=== PATIENT | male | born 1940 | race Caucasian/White ===

== ENCOUNTER 2019-08-18 17:35 | Inpatient (IN) ==
[2019-08-18 18:26] LABS: Basophils # (auto) 0.02 K/uL (0-0.2); Basophils % (auto) 0.2 %; Eosinophils # (auto) 0.61 K/uL (0-0.5); Hematocrit (blood only) 32.5 % (42-52); Hemoglobin 10.3 g/dL (14.0-18.0); Immature Granulocytes # (auto) 0.02 K/uL (0.00-0.02); Immature Granulocytes % (auto) 0.2 %; Lymphocytes # (auto) 2.07 K/uL (1.2-3.4); Lymphocytes % (auto) 23.7 %; Mean Corpuscular Hemoglobin 30.4 pg (25-34); Mean Corpuscular Hgb Conc 31.7 g/dL (32-36); Mean Corpuscular Volume 95.9 fL (80-100); Mean Platelet Volume 9.4 fL (7.4-10.4); Monocytes # (auto) 0.72 K/uL (0.11-0.59); Monocytes % (auto) 8.2 %; Neutrophils # (auto) 5.31 K/uL (1.4-6.5); Neutrophils % (auto) 60.7 %; Platelet Count 311 K/uL (130-400); RDW Coefficient of Variation 14.6 % (11.5-14.5); Red Blood Count 3.39 M/uL (4.7-6.1); White Blood Count 8.75 K/uL (4.8-10.8)
[2019-08-18 18:44] LABS: Blood Urea Nitrogen 51 mg/dl (7-18); Carbon Dioxide 24 mmol/L (21-32); Chloride 106 mmol/L (98-107); Potassium 4.7 mmol/L (3.5-5.1); Sodium 136 mmol/L (136-145)
[2019-08-18 18:45] LABS: BUN Creatinine Ratio 18.3 (10-20); Calcium 8.6 mg/dl (8.5-10.1); Est GFR (Non-African American) 20.7; Glucose 146 mg/dl (70-99)
[2019-08-18 18:49] LABS: Appearance Urine Turbid (Clear); Color Urine Red
[2019-08-18 18:50] LABS: Specific Gravity Urine 1.007 (1.000-1.030); Sulfosalicylic Acid Urine Positive (Negative)
[2019-08-18 18:55] LABS: RBC Urine >30 /hpf (0-4)
[2019-08-18 18:56] LABS: Epithelial Cell Urine 0-5 /lpf (0-5); WBC Urine >30 /hpf (0-5)
[2019-08-18 18:57] LABS: Bacteria Urine Negative (Negative)
[2019-08-18] MEDS ORDERED: SODIUM CHLORIDE 0.9% 1000ML 1,000 ML IV STA (19:35)
--- NOTE | 2019-08-18 20:26 | CT Scan Report ---
ABDOMEN AND PELVIS CT WITHOUT CONTRAST CT DOSE: 1385.60 mGy.cm HISTORY: Acute hematuria RACHELL, urinary retention TECHNIQUE: Multiaxial CT images of the abdomen and pelvis were performed without contrast. A dose lo wering technique was utilized adhering to the principles of ALARA. COMPARISON STUDY: None. FINDINGS: Lung bases are generally clear. No pneumatosis or pneumoperitoneum. The imaged inferior cardiac chamb ers are mildly enlarged. Mitral and aortic annular calcifications are present. Unremarkable liver. Sp troy, gallbladder and adrenal glands are unremarkable. No biliary ductal dilation. Moderate pancreati c atrophy. There is mild nonspecific bilateral perinephric stranding. 11 mm hypodensity of the latera l interpolar right kidney suggest probable cyst. No renal or ureteral calculi or obstructive uropathy . Ureters are normal in caliber. Moderate bladder wall thickening with partial distention. A Persaud ca theter is noted in the bladder lumen. Mild perivesicular stranding. Nondependent air within the bladd er lumen is noted with moderate amount of intraluminal blood products. Small fat filled bilateral ing uinal hernias. Extensive calcified plaque of the abdominal aorta. Postsurgical changes of the right inguinal tissues . No adenopathy. 1.3 cm fatty attenuating focus involves a loop of jejunum within the upper abdomen s uggestive of ingested material versus lipoma, image 108 series 3. No bowel obstruction or bowel wall thickening. Colonic diverticulosis without acute diverticulitis. Benign-appearing ovoid calcification adjacent to the distal sigmoid colon. This is adjacent to an area of remote epiploic appendage it is . Moderate fecal retention. The appendix appears noninflamed. Soft tissues are unremarkable. Degenera tive changes of the spine, pelvis and hips. IMPRESSION: 1. No renal or ureteral calculi or obstructive uropathy. 2. Partially decompressed urinary bladder with Persaud catheter. Moderate amount of blood products are noted within urinary bladder lumen. 3. Cardiomegaly. 4. Moderate fecal retention. 5. Colonic diverticulosis without acute diverticulitis. 6. Additional findings as above. Electronically signed by: Corona Souza M.D. 08/18/2019 8:25 PM
--- NOTE | 2019-08-18 21:46 | Emergency Department Note ---
Entered by Иван Zhu acting as a scribe for ED Provider Note CHIEF COMPLAINT: Catheter Malfunction HISTORY OF PRESENT ILLNESS: The patient is a 79 year old male who presents to the Emergency Room with complaints of catheter malfunction that started this morning. The patient states he had a prostate surgery done by Dr. Egan 3 weeks ago. He states he started having pain a week ago and had a catheter placed. He states he drained his catheter bag this morning and states it was pure blood. He notes lower abdominal pain and discomfort. He also notes feeling somewhat lightheaded and dizzy at times. He is concerned about the amount of bleeding he is experienced as he has a history of anemia. He took no medication for symptoms. Pt denies LOC, headache, fevers, chills, diaphoresis, visual changes, neck pain, chest pain, breathing difficulties, nausea, vomiting, back pain, melena, hematochezia, numbness, weakness, lymphadenopathy, rash, or other complaints. REVIEW OF SYSTEMS: See HPI for pertinent positives and negatives. A total of ten systems were reviewed and were otherwise negative. PMHx/PSHx: Anxiety, arthritis, BPH, depression, diabetes, hyperlipidemia, hypertension, peripheral vascular disease, history of vascular surgery, history of prostate surgery, history of herniorrhaphy, and history of arthroscopy. SOCIAL HISTORY: Patient lives at home. PHYSICAL EXAM: GENERAL: Awake, alert, uncomfortable-appearing, in no distress HENT: Normocephalic, atraumatic. Oropharynx unremarkable. EYES: PERRL. Normal conjunctiva. Sclera non-icteric. NECK: Inspection normal. Non-tender. Supple. No nuchal rigidity. FROM. No masses. RESPIRATORY: Clear to auscultation. No wheezes. No rales. Normal respiratory effort. CARDIAC: Tachycardic rate. Normal rhythm. No murmurs. No rubs. Extremities warm and well perfused. Pulses equal. No JVD. GI: Soft, non-distended. No tenderness to palpation. No rebound or guarding. No masses. : Suprapubic tenderness. Persaud catheter in place with bloody urine in the bag. RECTAL: Deferred. MUSCULOSKELETAL: Atraumatic. Chest examination reveals no tenderness. The back is symmetrical on inspection without obvious abnormality. There is no CVA tenderness to palpation. No joint edema. LOWER EXTREMITIES: Calves are equal size bilaterally and non-tender. No edema. No discoloration. NEURO: Normal sensorium. No sensory or motor deficits noted. SKIN: No rash or jaundice noted. EMERGENCY DEPARTMENT COURSE: 1746: Past medical records reviewed. The patient was evaluated in room C8, and a complete history and physical examination were performed. 1927: I reevaluated the patient. I discussed the test results with the patient and the patient is agreeable to getting admitted to the hospital. 1941: I discussed the patient's case with Dr. Walters - [facility] Hospitalist. He will evaluate the patient for further management MEDICAL DECISION MAKING: C8 Triage Nursing notes reviewed. The patient's presentation and history were concerning for a malfunctioning Persaud catheter. Etiologies such as catheter malfunction, obstruction, dehydration, infection, urinary retention, ARF, as well as others were entertained. The patient was evaluated. Persaud catheter was in place. The Persaud catheter was irrigated by nursing and the patient had spontaneous urine flow. He had resolution of his abdominal discomfort and felt much better with regards to that. As he has had significant bleeding the patient was questioned and did note feeling somewhat lightheaded. Blood work was obtained. The patient was slightly more anemic than prior but not within the range of transfusion considerations. He had no leukocytosis. There is no signs of infection on urine dip. The patient was found to have acute kidney injury with a doubling of his creatinine on his chemistry panel. This was concerning given his history. I discussed this with him and his family. Admission for further work-up was deemed appropriate. The patient was hydrated. CT imaging was ordered. I did place a consultation with Dr. Walters of internal medicine. The patient was evaluated by the team in the emergency department admitted for further treatment. IMPRESSION: Acute urinary retention Acute kidney injury Anemia. PLAN: Admitted The scribe's documentation has been prepared under my direction and personally reviewed by me in its entirety. I confirm that the note above accurately reflects all work, treatment, procedures, and medical decision making performed by me. 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 Beliefs That Will Affect Care: None Current Living Situation: Spouse Feels Safe at Home: Yes Smoking Status: Never smoker Second Hand Exposure: No ; Hx Alcohol Use: Yes Alcohol type: beer Hx Substance Use: No Results & Data Vital Signs Vital Signs - 24 hr 08/18/19 17:37 08/18/19 19:07 08/18/19 21:00 Temperature 36.4 C L Temperature Source Oral Pulse Rate 103 H Pulse Rate [Finger] 83 82 Respiratory Rate 20 18 20 Respiratory Effort / Characteristics Non-Labored Respiratory Depth Normal Normal Blood Pressure 161/73 H Blood Pressure [Right Arm] 149/72 H 129/73 Blood Pressure Mean 102 Blood Pressure Mean [Right Arm] 97 91 Pulse Oximetry 96 95 95 Oxygen Delivery Method Room Air Room Air Room Air Sepsis Recent Fever Within 48 Hours No Sepsis New/Unexplained Change in Mental Status No Sepsis Action Taken by Nursing No Action Required Home Medications Current Medication List: was personally reviewed by me Laboratory Data Attestation: I reviewed the patient's lab results. Result diagrams: 08/18/19 18:12 08/18/19 18:12 Lab Results 08/18/19 08/18/19 08/18/19 Range/Units 18:12 18:12 18:27 WBC 8.75 (4.8-10.8) K/uL RBC 3.39 L (4.7-6.1) M/uL Hgb 10.3 L (14.0-18.0) g/dL Hct 32.5 L (42-52) % MCV 95.9 (80-100) fL MCH 30.4 (25-34) pg MCHC 31.7 L (32-36) g/dL RDW Std Deviation 51.0 H (36.4-46.3) fL RDW Coeff of Kaylin 14.6 H (11.5-14.5) % Plt Count 311 (130-400) K/uL MPV 9.4 (7.4-10.4) fL Immature Gran % (Auto) 0.2 % Neut % (Auto) 60.7 % Lymph % (Auto) 23.7 % [place] % (Auto) 8.2 % Eos % (Auto) 7.0 % Baso % (Auto) 0.2 % Immature Gran # (Auto) 0.02 (0.00-0.02) K/uL Neut # (Auto) 5.31 (1.4-6.5) K/uL Lymph # (Auto) 2.07 (1.2-3.4) K/uL [place] # (Auto) 0.72 H (0.11-0.59) K/uL Eos # (Auto) 0.61 H (0-0.5) K/uL Baso # (Auto) 0.02 (0-0.2) K/uL Sodium 136 (136-145) mmol/L Potassium 4.7 (3.5-5.1) mmol/L Chloride 106 (98-107) mmol/L Carbon Dioxide 24 (21-32) mmol/L Anion Gap 6.0 (3-11) BUN 51 H (7-18) mg/dl Creatinine 2.80 H (0.6-1.4) mg/dl Est Cr Clr Drug Dosing Not Reportable Est GFR ( Amer) 24.0 Est GFR (Non-Af Amer) 20.7 BUN/Creatinine Ratio 18.3 (10-20) Glucose 146 H (70-99) mg/dl Calcium 8.6 (8.5-10.1) mg/dl Urine Color Red Urine Appearance Turbid A (Clear) Urine pH (4.5-7.5) Ur Specific [place] 1.007 (1.000-1.030) Urine Protein (Negative) Urine Glucose (UA) (Negative) Urine Ketones (Negative) Urine Blood (Negative) Urine Nitrite (Negative) Urine Bilirubin (Negative) Urine Urobilinogen (Negative) Ur Leukocyte Esterase (Negative) Urine RBC >30 H (0-4) /hpf Urine WBC >30 H (0-5) /hpf Ur Epithelial Cells 0-5 (0-5) /lpf Urine Bacteria Negative (Negative) Administered Medications Sodium Chloride (Nss 1000ml) 1,000 mls @ 125 mls/hr IV .Q8H STA Stop: 08/19/19 03:34 Last Admin: 08/18/19 20:17 Dose: 125 mls/hr Documented by: [id number] Imaging Data Radiologist's Impression: Radiology results as stated below per my review and the radiologist's interpretation: ABDOMEN AND PELVIS CT WITHOUT CONTRAST CT DOSE: 1385.60 mGy.cm HISTORY: Acute hematuria RACHELL, urinary retention TECHNIQUE: Multiaxial CT images of the abdomen and pelvis were performed without contrast. A dose lowering technique was utilized adhering to the principles of ALARA. COMPARISON STUDY: None. FINDINGS: Lung bases are generally clear. No pneumatosis or pneumoperitoneum. The imaged inferior cardiac chambers are mildly enlarged. Mitral and aortic annular calcifications are present. Unremarkable liver. Spleen, gallbladder and adrenal glands are unremarkable. No biliary ductal dilation. Moderate pancreatic atrophy. There is mild nonspecific bilateral perinephric stranding. 11 mm hypodensity of the lateral interpolar right kidney suggest probable cyst. No renal or ureteral calculi or obstructive uropathy. Ureters are normal in caliber. Moderate bladder wall thickening with partial distention. A Persaud catheter is noted in the bladder lumen. Mild perivesicular stranding. Nondependent air within the bladder lumen is noted with moderate amount of intraluminal blood products. Small fat filled bilateral inguinal hernias. Extensive calcified plaque of the abdominal aorta. Postsurgical changes of the right inguinal tissues. No adenopathy. 1.3 cm fatty attenuating focus involves a loop of jejunum within the upper abdomen suggestive of ingested material versus lipoma, image 108 series 3. No bowel obstruction or bowel wall thickening. Colonic diverticulosis without acute diverticulitis. Benign-appearing ovoid calcification adjacent to the distal sigmoid colon. This is adjacent to an area of remote epiploic appendage it is. Moderate fecal retention. The appendix appears noninflamed. Soft tissues are unremarkable. Degenerative changes of the spine, pelvis and hips. IMPRESSION: 1. No renal or ureteral calculi or obstructive uropathy. 2. Partially decompressed urinary bladder with Persaud catheter. Moderate amount of blood products are noted within urinary bladder lumen. 3. Cardiomegaly. 4. Moderate fecal retention. 5. Colonic diverticulosis without acute diverticulitis. 6. Additional findings as above. Electronically signed by: Corona Souza M.D. 08/18/2019 8:25 PM Blood Pressure Blood Pressure Findings: Elevated blood pressure Blood Pressure Disposition: further management by hospitalist Discharge Plan Visit Data Chief Complaint: Catheter Replacement Stated Complaint: CATHETER REPLACEMENT ED Provider: Bear Solis Discharge Problem: Acute urinary retention, Acute kidney injury Patient Disposition: Being Evaluated by Hospitalist Forms Stand Alone Forms: My [facility] Prescriptions Prescriptions: No Action finasteride 5 mg tablet 5 mg PO DAILY Qty: 30 RF: 2 oxybutynin chloride 5 mg tablet 5 mg PO BID PRN (Reason: bladder spasms) Qty: 60 RF: 0 simvastatin 80 mg tablet 40 mg PO HS RF: 0 docusate sodium 100 mg capsule 100 mg PO BID RF: 0 gabapentin 300 mg capsule 300 mg PO BID RF: 0 tamsulosin 0.4 mg capsule 0.4 mg PO HS RF: 0 metformin 1,000 mg tablet 1,000 mg PO BIDM RF: 0 lisinopril 10 mg tablet 10 mg PO QAM RF: 0 pioglitazone 30 mg tablet 30 mg PO QDD RF: 0 trospium 20 mg tablet 20 mg PO BID RF: 0 phenazopyridine [Pyridium] 200 mg tablet 200 mg PO TID PRN (Reason: bladder spasms) Qty: 20 RF: 0 clopidogrel 75 mg Tablet 75 mg PO QPM Qty: 0 RF: 0 Referrals Referrals: Jose Miguel Back MD [Primary Care Provider] - The scribe's documentation has been prepared under my direction and personally reviewed by me in its entirety. I confirm that the note above accurately reflects all work, treatment, procedures, and medical decision making performed by me.
[2019-08-18] MEDS ORDERED: GLUCAGON FOR INJ 1 MG VIAL SQ PRN (21:50)
[2019-08-18] MEDS ORDERED: CARBOHYDRATES FOR HYPOGLYCEMIA PO PRN (21:50)
[2019-08-18] MEDS ORDERED: ACETAMINOPHEN 325 MG TAB PO PRN (21:50)
[2019-08-18] MEDS ORDERED: GLUCOSE 10 TABS/TUBE PO PRN (21:50)
[2019-08-18] MEDS ORDERED: OXYBUTYNIN CHLORIDE 5 MG TAB PO PRN (21:50)
[2019-08-18] MEDS ORDERED: GLUCOSE 40% GEL 15 GM TUBE PO PRN (21:50)
[2019-08-18] MEDS ORDERED: ONDANSETRON INJ 2 MG/ML 2 ML VIAL IV PRN (21:50)
[2019-08-18] MEDS ORDERED: DEXTROSE 50% 50 ML SYRINGE IV PRN (21:50)
[2019-08-18] MEDS: FAMOTIDINE 20 MG TAB PO SCH (22:41)
[2019-08-18] MEDS: DOCUSATE SODIUM 100 MG CAP PO SCH (22:41)
[2019-08-18] MEDS: TAMSULOSIN HCL 0.4 MG CAP PO SCH (22:41)
[2019-08-18] MEDS: GABAPENTIN 300 MG CAP PO SCH (22:41)
[2019-08-18] MEDS: SIMVASTATIN 40 MG TAB PO SCH (22:42)
--- NOTE | 2019-08-18 23:17 | History & Physical Report ---
Date of Service August 18, 2019 Assessment & Plan (1) Acute urinary retention: Admit GMF Clots evacuated from urinary cath [facility] Urology consult IV Rocephin in case infection is playing role in bleeding. Pain and nausea control. (2) Acute kidney injury: Baseline creat 1.12 -> 2.80 now IVF re-check bmp in the am suspect due to outlet obstruction. (3) Diabetes mellitus, type 2: Hold metformin continue pioglitazone Add sliding scale insulin ADA diet (4) BPH (benign prostatic hyperplasia): Had Greenlight vaporization of prostate 07/31/19 (5) Hypertension: Not elevated at this time I held lisinopril due to kidney function History of Present Illness 79 y/o male who presented to the ED with complaints of urinary catheter malfunction that started this morning. The patient states he had a prostate surgery done by Dr. Egan 3 weeks ago, then developed pain 1 week prior and had a catheter placed. He drained his catheter bag this morning and states it was "pure blood". He has had lower abdominal pain. No F/C, cough, SOB, chest pain, N/V/D, or weakness. Primary Care Provider: Jose Miguel Back MD Allergies Allergy/AdvReac Type Severity Reaction Status Date / Time Penicillins Allergy Unknown Unknown Verified 08/18/19 18:17 sildenafil [From Viagra] AdvReac Unknown hyperactivi Verified 08/18/19 18:17 ty Home Medications Home Medications Medication Instructions Recorded Confirmed Type simvastatin 80 mg tablet 40 mg PO HS 05/18/19 08/18/19 History docusate sodium 100 mg PO BID 07/12/19 08/18/19 History gabapentin 300 mg PO BID 07/12/19 08/18/19 History lisinopril 10 mg PO QAM 07/12/19 08/18/19 History metformin 1,000 mg PO BIDM 07/12/19 08/18/19 History pioglitazone 30 mg PO QDD 07/12/19 08/18/19 History tamsulosin 0.4 mg PO HS 07/12/19 08/18/19 History trospium 20 mg PO BID 07/12/19 08/18/19 History clopidogrel 75 mg PO QPM #0 tab 07/31/19 08/18/19 Rx phenazopyridine [Pyridium] 200 mg PO TID PRN #20 tab 07/31/19 08/18/19 Rx finasteride 5 mg tablet 5 mg PO DAILY #30 tab 08/17/19 08/18/19 Rx oxybutynin chloride 5 mg tablet 5 mg PO BID PRN #60 tab 08/17/19 08/18/19 Rx Past Med/Surg History Medical History Anxiety Arthritis BPH (benign prostatic hyperplasia) Depression Diabetes mellitus, type 2 NIDDM Hyperlipidemia Hypertension Obesity Peripheral vascular disease s/p RLE stent- on plavix Sleep apnea "mild"- no device Surgical History History of arthroscopy R/L knee History of herniorrhaphy right/left inguinal Hx of vascular surgery RLE stent placement Social History Preferred Language: Welsh Communication Ability: Effective Inhalation Therapy Aide Required: No Beliefs That Will Affect Care: None Current Living Situation: Spouse Other Information That Helps Us Care for You: No Feels Safe at Home: Yes Safety Concerns: Feels Safe At This Time Smoking Status: Former smoker Do You Dip or Chew Tobacco: No ; Second Hand Exposure: No ; Hx Alcohol Use: Yes Alcohol type: beer Hx Substance Use: No Review of Systems Review of Systems: Constitutional- no fever; no weight loss Eyes- no acute visual changes ENT- no sinus drainage; no pharyngitis Pulmonary- no cough, no wheezing, no shortness of breath Cardiac- no chest pain, no palpitations, no orthopnea, no dependent edema GI- As in HPI - As in HPI Musculoskeletal- no arthralgias, no myalgias Derm- no rashes, no new skin lesions. Hematologic- no unusual bruising. Lymphatics- no adenopathy Endocrine- no polyuria or polydipsia; no heat or cold intolerance Neuro- no headaches, no focal neurologic symptoms Psych- no anxiety, no depression Physical Exam Physical Exam: General- adult male, NAD Head- atraumatic Eyes- PERRL, EOMI, anicteric ENT- oropharynx clear Neck- supple, no JVD, no adenopathy, no thyromegaly. Lungs- CTA b/l no R/R/W. Heart- regular rhythm; no murmur, no gallop, no rub appreciated Abdomen- normal bowel sounds, soft, nontender. 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 Skin- warm & dry Results & Data Vital Signs (Past 12 Hours) Vital Signs Temp Pulse Pulse Resp BP BP Pulse Ox 08/18/19 22:16 36.5 C 88 22 126/68 94 08/18/19 21:00 82 20 129/73 95 08/18/19 19:07 83 18 149/72 H 95 08/18/19 17:37 36.4 C L 103 H 20 161/73 H 96 Laboratory Results Laboratory Results WBC 8.75 K/uL (4.8-10.8) 08/18/19 18:12 RBC 3.39 M/uL (4.7-6.1) L 08/18/19 18:12 Hgb 10.3 g/dL (14.0-18.0) L 08/18/19 18:12 Hct 32.5 % (42-52) L 08/18/19 18:12 MCV 95.9 fL (80-100) 08/18/19 18:12 MCH 30.4 pg (25-34) 08/18/19 18:12 MCHC 31.7 g/dL (32-36) L 08/18/19 18:12 RDW Std Deviation 51.0 fL (36.4-46.3) H 08/18/19 18:12 RDW Coeff of Kaylin 14.6 % (11.5-14.5) H 08/18/19 18:12 Plt Count 311 K/uL (130-400) 08/18/19 18:12 MPV 9.4 fL (7.4-10.4) 08/18/19 18:12 Immature Gran % (Auto) 0.2 % 08/18/19 18:12 Neut % (Auto) 60.7 % 08/18/19 18:12 Lymph % (Auto) 23.7 % 08/18/19 18:12 [place] % (Auto) 8.2 % 08/18/19 18:12 Eos % (Auto) 7.0 % 08/18/19 18:12 Baso % (Auto) 0.2 % 08/18/19 18:12 Immature Gran # (Auto) 0.02 K/uL (0.00-0.02) 08/18/19 18:12 Neut # (Auto) 5.31 K/uL (1.4-6.5) 08/18/19 18:12 Lymph # (Auto) 2.07 K/uL (1.2-3.4) 08/18/19 18:12 [place] # (Auto) 0.72 K/uL (0.11-0.59) H 08/18/19 18:12 Eos # (Auto) 0.61 K/uL (0-0.5) H 08/18/19 18:12 Baso # (Auto) 0.02 K/uL (0-0.2) 08/18/19 18:12 Sodium 136 mmol/L (136-145) 08/18/19 18:12 Potassium 4.7 mmol/L (3.5-5.1) 08/18/19 18:12 Chloride 106 mmol/L (98-107) 08/18/19 18:12 Carbon Dioxide 24 mmol/L (21-32) 08/18/19 18:12 Anion Gap 6.0 (3-11) 08/18/19 18:12 BUN 51 mg/dl (7-18) H 08/18/19 18:12 Creatinine 2.80 mg/dl (0.6-1.4) H 08/18/19 18:12 Est Cr Clr Drug Dosing Not Reportable 08/18/19 18:12 Est GFR ( Amer) 24.0 08/18/19 18:12 Est GFR (Non-Af Amer) 20.7 08/18/19 18:12 BUN/Creatinine Ratio 18.3 (10-20) 08/18/19 18:12 Glucose 146 mg/dl (70-99) H 08/18/19 18:12 POC Glucose 108 (70-99) H 08/18/19 21:52 Calcium 8.6 mg/dl (8.5-10.1) 08/18/19 18:12 Urine Color Red 08/18/19 18:27 Urine Appearance Turbid (Clear) A 08/18/19 18:27 Urine pH (4.5-7.5) 08/18/19 18:27 Ur Specific [place] 1.007 (1.000-1.030) 08/18/19 18:27 Urine Protein (Negative) 08/18/19 18:27 Urine Glucose (UA) (Negative) 08/18/19 18:27 Urine Ketones (Negative) 08/18/19 18:27 Urine Blood (Negative) 08/18/19 18:27 Urine Nitrite (Negative) 08/18/19 18:27 Urine Bilirubin (Negative) 08/18/19 18:27 Urine Urobilinogen (Negative) 08/18/19 18:27 Ur Leukocyte Esterase (Negative) 08/18/19 18:27 Urine RBC >30 /hpf (0-4) H 08/18/19 18:27 Urine WBC >30 /hpf (0-5) H 08/18/19 18:27 Ur Epithelial Cells 0-5 /lpf (0-5) 08/18/19 18:27 Urine Bacteria Negative (Negative) 08/18/19 18:27 Code Status & VTE Plan VTE Prophylaxis Plan VTE Prophylaxis will be ordered: Yes PG Care Time/CCT Total # of Minutes Spent Total Time Spent: 50 Total Time Spent with Patient: Total time spent is greater than 50% in coordination of care (as documented) at patient's floor/unit and/or counseling patient:
[2019-08-18] MEDS: LACTATED RINGER'S 1,000 ML IV SCH (23:43)
[2019-08-19] MEDS: INSULIN ASPART 100 UNITS/ML 3 ML PEN SC SCH ×6 (00:15→20:33)
[2019-08-19] MEDS: cefTRIAXone SODIUM 2,000 MG in DEXTROSE 5% 50 ML IV SCH (01:29)
[2019-08-19] MEDS: PHENAZOPYRIDINE HCL 200 MG TAB PO PRN ×2 (01:52→14:39)
[2019-08-19] MEDS ORDERED: MoRPHine SULFATE 2 MG/ML CARP ONE (02:44)
[2019-08-19] MEDS: LACTATED RINGER'S 1,000 ML IV SCH ×3 (06:39→22:45)
[2019-08-19 06:45] LABS: Hematocrit (blood only) 29.8 % (42-52); Hemoglobin 9.6 g/dL (14.0-18.0); Mean Corpuscular Hemoglobin 30.3 pg (25-34); Mean Corpuscular Hgb Conc 32.2 g/dL (32-36); Mean Platelet Volume 9.7 fL (7.4-10.4); Platelet Count 272 K/uL (130-400); RDW Coefficient of Variation 14.4 % (11.5-14.5); RDW Standard Deviation 49.8 fL (36.4-46.3); Red Blood Count 3.17 M/uL (4.7-6.1); White Blood Count 6.64 K/uL (4.8-10.8)
[2019-08-19 07:19] LABS: BUN Creatinine Ratio 17.4 (10-20); Calcium 8.9 mg/dl (8.5-10.1); Creatinine Clr Calc Pharmacy 29.5 ml/min; Est GFR (African American) 24.3; Est GFR (Non-African American) 20.9; Potassium 4.8 mmol/L (3.5-5.1)
[2019-08-19] MEDS: MoRPHine SULFATE 2 MG/ML CARP IV PRN ×2 (07:40→11:31)
[2019-08-19] MEDS: DOCUSATE SODIUM 100 MG CAP PO SCH ×2 (07:42→20:06)
[2019-08-19] MEDS: GABAPENTIN 300 MG CAP PO SCH ×2 (07:43→20:06)
[2019-08-19] MEDS: FAMOTIDINE 20 MG TAB PO SCH ×2 (07:43→20:06)
--- NOTE | 2019-08-19 09:26 | Hospitalist Progress Note ---
Date of Service August 19, 2019 Assessment & Plan (1) Acute urinary retention: Secondary to gross hematuria clots and dysfunctioning catheter Clots evacuated from urinary cath and now on CBI Retention resolved for now -Continue CBI -Awaiting urology consult -Continue IV Rocephin in case infection is playing role in bleeding, UA negative, urine culture pending. -Continue pain and nausea control as needed -Holding home Plavix -Continue home tamsulosin (2) Acute kidney injury: Baseline creat 1.12 -> 2.80 on admission secondary to urinary obstruction with clots as above Creatinine trended downward to 2.77 today and expect it will continue to improve now that urinary obstruction is resolved -Continue IVF -Follow BMP -Holding lisinopril and metformin from home (3) Gross hematuria: Had recent laser prostate surgery 3 weeks prior to admission -Starting having urinary retention and clot formation several days prior to admission with Persaud catheter placed in the ER -Went home and had continued hematuria -Now on CBI -Awaiting urology consultation -Holding Plavix as above -Oxybutynin as needed for bladder spasms (4) Diabetes mellitus, type 2: Blood sugars fairly well controlled, hemoglobin A1c here pending -Continue to hold metformin -Continue pioglitazone -Continue sliding scale insulin -ADA diet (5) BPH (benign prostatic hyperplasia): Had Greenlight vaporization of prostate 07/31/19 as above (6) Hypertension: Blood pressures controlled -Continue to hold home lisinopril for acute kidney injury (7) Constipation: Add MiraLAX (8) Dyspnea: Chronic, likely undiagnosed COPD Has 2 pack a day smoking history for many years, quit 15 years ago -Needs outpatient PFTs -No home inhalers -Monitor for worsening (9) Peripheral vascular disease: With history of some sort of vascular surgery in 2016 to the lower extremity -Holding home Plavix -Continue home statin (10) DVT prophylaxis: Hold chemical prophylaxis due to gross hematuria SCDs ordered Disposition-remain hospitalized for continued treatment of acute kidney injury and gross hematuria with urinary obstruction Subjective Patient feeling better, no pain in the abdomen. Nursing reports she had to speed up the CBI rate for a small clot but otherwise Persaud catheter and CBI draining well. He is constipated. He does have a history of C. difficile however 3 years ago during a prolonged hospitalization after a vascular procedure. Denies chest pain. He has chronic shortness of breath but no worse than usual and has a long history of 2 pack-a-day smoking for which he quit 15 years ago. He has never been diagnosed with COPD. Review of Systems Review of Systems: All systems reviewed & are unremarkable except as noted in HPI & below Physical Exam Constitutional: WD/WN, vitals as above Eyes: + anicteric sclerae Neck: trachea midline, no thyromegaly Respiratory: normal respiratory effort; no labored breathing Auscultation: + diminished lung sounds (Throughout); no crackles, no rhonchi and no wheezes Cardiovascular: RRR, no murmur, no edema Chest (Breasts): Chest: normal inspection of chest Gastrointestinal (Abdomen): Inspection/Auscultation: abdomen normal to inspection, + abdomen distended (Mild) and normal bowel sounds Percussion/Palpation: abdomen soft; abdomen nontender, no guarding and abdomen not rigid Musculoskeletal: Extremities: extremities normal to inspection; no cyanosis and no clubbing Skin: no rashes, warm and dry Neurologic: moves all extremities and awake; no focal motor deficits Psychiatric: A+Ox3, euthymic affect Genitourinary: Persaud catheter in place draining clear yellow urine, no clots Lymphatic: no lymphedema Results & Data Vital Signs (Past 12 Hours) Vital Signs Temp Pulse Resp BP Pulse Ox 08/19/19 07:48 36.6 C 77 18 137/70 94 08/19/19 00:22 36.8 C 81 19 100/63 97 08/18/19 22:16 36.5 C 88 22 126/68 94 Laboratory Results 08/19/19 08/19/19 08/19/19 Range/Units 07:31 06:25 06:25 WBC (4.8-10.8) K/uL RBC (4.7-6.1) M/uL Hgb (14.0-18.0) g/dL Hct (42-52) % MCV (80-100) fL MCH (25-34) pg MCHC (32-36) g/dL RDW Std Deviation (36.4-46.3) fL RDW Coeff of Kaylin (11.5-14.5) % Plt Count (130-400) K/uL MPV (7.4-10.4) fL Immature Gran % (Auto) % Neut % (Auto) % Lymph % (Auto) % [place] % (Auto) % Eos % (Auto) % Baso % (Auto) % Immature Gran # (Auto) (0.00-0.02) K/uL Neut # (Auto) (1.4-6.5) K/uL Lymph # (Auto) (1.2-3.4) K/uL [place] # (Auto) (0.11-0.59) K/uL Eos # (Auto) (0-0.5) K/uL Baso # (Auto) (0-0.2) K/uL Sodium 140 (136-145) mmol/L Potassium 4.8 (3.5-5.1) mmol/L Chloride 110 H (98-107) mmol/L Carbon Dioxide 23 (21-32) mmol/L Anion Gap 7.0 (3-11) BUN 48 H (7-18) mg/dl Creatinine 2.77 H (0.6-1.4) mg/dl Est Cr Clr Drug Dosing 29.5 Est GFR ( Amer) 24.3 Est GFR (Non-Af Amer) 20.9 BUN/Creatinine Ratio 17.4 (10-20) Glucose 105 H (70-99) mg/dl POC Glucose 124 H (70-99) Estimat Average Glucose Pending Hemoglobin A1c Pending Calcium 8.9 (8.5-10.1) mg/dl Urine Color Urine Appearance (Clear) Urine pH (4.5-7.5) Ur Specific [place] (1.000-1.030) Urine Protein (Negative) Urine Glucose (UA) (Negative) Urine Ketones (Negative) Urine Blood (Negative) Urine Nitrite (Negative) Urine Bilirubin (Negative) Urine Urobilinogen (Negative) Ur Leukocyte Esterase (Negative) Urine RBC (0-4) /hpf Urine WBC (0-5) /hpf Ur Epithelial Cells (0-5) /lpf Urine Bacteria (Negative) 08/19/19 08/18/19 08/18/19 Range/Units 06:25 21:52 18:27 WBC 6.64 (4.8-10.8) K/uL RBC 3.17 L (4.7-6.1) M/uL Hgb 9.6 L (14.0-18.0) g/dL Hct 29.8 L (42-52) % MCV 94.0 (80-100) fL MCH 30.3 (25-34) pg MCHC 32.2 (32-36) g/dL RDW Std Deviation 49.8 H (36.4-46.3) fL RDW Coeff of Kaylin 14.4 (11.5-14.5) % Plt Count 272 (130-400) K/uL MPV 9.7 (7.4-10.4) fL Immature Gran % (Auto) % Neut % (Auto) % Lymph % (Auto) % [place] % (Auto) % Eos % (Auto) % Baso % (Auto) % Immature Gran # (Auto) (0.00-0.02) K/uL Neut # (Auto) (1.4-6.5) K/uL Lymph # (Auto) (1.2-3.4) K/uL [place] # (Auto) (0.11-0.59) K/uL Eos # (Auto) (0-0.5) K/uL Baso # (Auto) (0-0.2) K/uL Sodium (136-145) mmol/L Potassium (3.5-5.1) mmol/L Chloride (98-107) mmol/L Carbon Dioxide (21-32) mmol/L Anion Gap (3-11) BUN (7-18) mg/dl Creatinine (0.6-1.4) mg/dl Est Cr Clr Drug Dosing Est GFR ( Amer) Est GFR (Non-Af Amer) BUN/Creatinine Ratio (10-20) Glucose (70-99) mg/dl POC Glucose 108 H (70-99) Estimat Average Glucose Hemoglobin A1c Calcium (8.5-10.1) mg/dl Urine Color Red Urine Appearance Turbid A (Clear) Urine pH (4.5-7.5) Ur Specific [place] 1.007 (1.000-1.030) Urine Protein (Negative) Urine Glucose (UA) (Negative) Urine Ketones (Negative) Urine Blood (Negative) Urine Nitrite (Negative) Urine Bilirubin (Negative) Urine Urobilinogen (Negative) Ur Leukocyte Esterase (Negative) Urine RBC >30 H (0-4) /hpf Urine WBC >30 H (0-5) /hpf Ur Epithelial Cells 0-5 (0-5) /lpf Urine Bacteria Negative (Negative) 08/18/19 08/18/19 Range/Units 18:12 18:12 WBC 8.75 (4.8-10.8) K/uL RBC 3.39 L (4.7-6.1) M/uL Hgb 10.3 L (14.0-18.0) g/dL Hct 32.5 L (42-52) % MCV 95.9 (80-100) fL MCH 30.4 (25-34) pg MCHC 31.7 L (32-36) g/dL RDW Std Deviation 51.0 H (36.4-46.3) fL RDW Coeff of Kaylin 14.6 H (11.5-14.5) % Plt Count 311 (130-400) K/uL MPV 9.4 (7.4-10.4) fL Immature Gran % (Auto) 0.2 % Neut % (Auto) 60.7 % Lymph % (Auto) 23.7 % [place] % (Auto) 8.2 % Eos % (Auto) 7.0 % Baso % (Auto) 0.2 % Immature Gran # (Auto) 0.02 (0.00-0.02) K/uL Neut # (Auto) 5.31 (1.4-6.5) K/uL Lymph # (Auto) 2.07 (1.2-3.4) K/uL [place] # (Auto) 0.72 H (0.11-0.59) K/uL Eos # (Auto) 0.61 H (0-0.5) K/uL Baso # (Auto) 0.02 (0-0.2) K/uL Sodium 136 (136-145) mmol/L Potassium 4.7 (3.5-5.1) mmol/L Chloride 106 (98-107) mmol/L Carbon Dioxide 24 (21-32) mmol/L Anion Gap 6.0 (3-11) BUN 51 H (7-18) mg/dl Creatinine 2.80 H (0.6-1.4) mg/dl Est Cr Clr Drug Dosing Not Reportable Est GFR ( Amer) 24.0 Est GFR (Non-Af Amer) 20.7 BUN/Creatinine Ratio 18.3 (10-20) Glucose 146 H (70-99) mg/dl POC Glucose (70-99) Estimat Average Glucose Hemoglobin A1c Calcium 8.6 (8.5-10.1) mg/dl Urine Color Urine Appearance (Clear) Urine pH (4.5-7.5) Ur Specific [place] (1.000-1.030) Urine Protein (Negative) Urine Glucose (UA) (Negative) Urine Ketones (Negative) Urine Blood (Negative) Urine Nitrite (Negative) Urine Bilirubin (Negative) Urine Urobilinogen (Negative) Ur Leukocyte Esterase (Negative) Urine RBC (0-4) /hpf Urine WBC (0-5) /hpf Ur Epithelial Cells (0-5) /lpf Urine Bacteria (Negative) PG Care Time/CCT Total # of Minutes Spent Total Time Spent with Patient: Total time spent is greater than 50% in coordination of care (as documented) at patient's floor/unit and/or counseling patient:
[2019-08-19] MEDS: POLYETHYLENE (MIRALAX) 17 GM PACK PO SCH (10:16)
--- NOTE | 2019-08-19 11:33 | Urology Consultation ---
Date of Consultation August 19, 2019 Assessment & Plan (1) Gross hematuria: Continue with irrigation. Will monitor for repeat episode of bleeding. Appears to have drained majority of clots. Appears to have controlled the bleeding as well. Patient will need cystoscopy with assessment of bladder and prostate to determine source of bleeding. Will likely need some sort of imaging. Will need full work-up at some point. Patient is to continue with catheter until confirmed that he is no longer having issues. Will will follow. Patient's complicated medical and surgical history is reviewed. We will alert office that patient will not be at his visit tomorrow. (2) BPH (benign prostatic hyperplasia): History of Present Illness Attending Physician: Nidhi Segovia MD History of Present Illness History of incomplete emptying and BPH issues with retention. Developed hematuria. Patient was to be seen tomorrow in [place]. Developed severe discomfort and pain after catheter was placed at [facility] in [place]. Patient had significant spasms and bleeding around the catheter. Had severe bleeding since then. Intermittently seeing clots. Will had some poor drainage issues. This morning had a three-way catheter placed and since then with irrigation has now gone completely clear. Has significant spasms and discomfort. Overall is concerned due to the bleeding. Had trouble alerting office due to these issues. Has become more bothersome. Discomfort in groin going to back and flank. Allergies Allergy/AdvReac Type Severity Reaction Status Date / Time Penicillins Allergy Unknown Unknown Verified 08/18/19 18:17 sildenafil [From Viagra] AdvReac Unknown hyperactivi Verified 08/18/19 18:17 ty Home Medications Home Medications Medication Instructions Recorded Confirmed Type simvastatin 80 mg tablet 40 mg PO HS 05/18/19 08/18/19 History docusate sodium 100 mg PO BID 07/12/19 08/18/19 History gabapentin 300 mg PO BID 07/12/19 08/18/19 History lisinopril 10 mg PO QAM 07/12/19 08/18/19 History metformin 1,000 mg PO BIDM 07/12/19 08/18/19 History pioglitazone 30 mg PO QDD 07/12/19 08/18/19 History tamsulosin 0.4 mg PO HS 07/12/19 08/18/19 History trospium 20 mg PO BID 07/12/19 08/18/19 History clopidogrel 75 mg PO QPM #0 tab 11/19/19 12/07/19 Rx phenazopyridine [Pyridium] 200 mg PO TID PRN #20 tab 07/31/19 08/18/19 Rx finasteride 5 mg tablet 5 mg PO DAILY #30 tab 08/17/19 08/18/19 Rx oxybutynin chloride 5 mg tablet 5 mg PO BID PRN #60 tab 08/17/19 08/18/19 Rx Patient History Medical History Anxiety Arthritis BPH (benign prostatic hyperplasia) Depression Diabetes mellitus, type 2 NIDDM Hyperlipidemia Hypertension Obesity PAD (peripheral artery disease) Peripheral vascular disease s/p RLE stent- on plavix Sleep apnea "mild"- no device Surgical History History of arthroscopy R/L knee History of herniorrhaphy right/left inguinal Hx of vascular surgery RLE stent placement Social History Preferred Language: Citizen Of [place] Communication Ability: Effective [employer] Required: No Beliefs That Will Affect Care: None Current Living Situation: Spouse Other Information That Helps Us Care for You: No Feels Safe at Home: Yes Safety Concerns: Feels Safe At This Time Smoking Status: Former smoker Do You Dip or Chew Tobacco: No ; Second Hand Exposure: No ; Hx Alcohol Use: Yes Alcohol type: beer Hx Substance Use: No Review of Systems Review of Systems: All systems reviewed & are unremarkable except as noted in HPI & below Physical Exam Physical Exam: General: Alert in no acute distress. HEENT: Normocephalic Atraumatic. Inspection normal. Cranial Nerves 2-12 Grossly intact. Normal inspection of face. Normal inspection of neck. Psychologic: Normal affect. Respiratory: Nonlabored. No use of accessory muscles. No tachypnea or dyspnea. Cardiovascular: No tachycardia Skin: [place] and Dry. No rashes or visible lesions. Extremities/Lymphatics: No edema Abdomen: Soft Non-distended. No rebound or guarding. Obese : Persaud catheter in place. Three-way catheter with minimal irrigation ru nning. Clear yellow with mild pink color in bag Results & Data Vital Signs (Past 12 Hours) Vital Signs Temp Pulse Resp BP Pulse Ox 08/19/19 07:48 36.6 C 77 18 137/70 94 08/19/19 00:22 36.8 C 81 19 100/63 97 PG Care Time/CCT Total # of Minutes Spent Total Time Spent with Patient: Total time spent is greater than 50% in coordination of care (as documented) at patient's floor/unit and/or counseling patient:
[2019-08-19] MEDS ORDERED: PIOGLITAZONE 30 MG PO SCH (16:30)
[2019-08-19] MEDS: SIMVASTATIN 40 MG TAB PO SCH (20:06)
[2019-08-19] MEDS: TAMSULOSIN HCL 0.4 MG CAP PO SCH (20:06)
[2019-08-20] MEDS: cefTRIAXone SODIUM 2,000 MG in DEXTROSE 5% 50 ML IV SCH (01:45)
[2019-08-20] MEDS: LACTATED RINGER'S 1,000 ML IV SCH ×3 (02:30→23:00)
[2019-08-20 06:30] LABS: Estimated Average Glucose 140 mg/dl; Hemoglobin A1C 6.5 % (4.5-5.6)
[2019-08-20 07:23] LABS: Hematocrit (blood only) 30.7 % (42-52); Hemoglobin 9.9 g/dL (14.0-18.0); Mean Corpuscular Hemoglobin 30.6 pg (25-34); Mean Corpuscular Hgb Conc 32.2 g/dL (32-36); Mean Corpuscular Volume 94.8 fL (80-100); Mean Platelet Volume 9.5 fL (7.4-10.4); Platelet Count 309 K/uL (130-400); RDW Coefficient of Variation 14.2 % (11.5-14.5); RDW Standard Deviation 49.3 fL (36.4-46.3); Red Blood Count 3.24 M/uL (4.7-6.1); White Blood Count 7.23 K/uL (4.8-10.8)
[2019-08-20] MEDS: GABAPENTIN 300 MG CAP PO SCH ×2 (07:42→21:13)
[2019-08-20] MEDS: POLYETHYLENE (MIRALAX) 17 GM PACK PO SCH (07:42)
[2019-08-20] MEDS: FAMOTIDINE 20 MG TAB PO SCH ×2 (07:42→21:13)
[2019-08-20] MEDS: DOCUSATE SODIUM 100 MG CAP PO SCH ×2 (07:42→21:13)
[2019-08-20 07:49] LABS: BUN Creatinine Ratio 15.3 (10-20); Calcium 8.5 mg/dl (8.5-10.1); Creatinine Clr Calc Pharmacy 30.7 ml/min; Est GFR (African American) 25.5; Potassium 5.1 mmol/L (3.5-5.1)
[2019-08-20] MEDS: INSULIN ASPART 100 UNITS/ML 3 ML PEN SC SCH ×4 (08:08→21:26)
--- NOTE | 2019-08-20 09:16 | Urology Progress Note ---
Date of Service August 20, 2019 Assessment & Plan (1) Gross hematuria: 79yo M s/p GLTURP on 07/31, with gross hematuria. Cr remains elevated, slightly improved Discussed with lior Fisher to clamp CBI now. Monitor for hematuria, criteria to restart indicated in communication order. Discussed with CHAVO Poon. We recommend consulting cardiology for recommendations regarding potential discontinuation of Plavix given significant issues with hematuria. Will continue to monitior. Subjective 79yo M s/p GLTURP with Dr. Egan on 07/31, readmitted for gross hematuria, clotted catheter. Plavix on hold Slow CBI running, urine draining clear with mild clots. No need for hand irrigation overnight. Chart review - H/H Stable. Cr slowly trending down but remains elevated at 2.6. CT from 08/18 reviewed - no stones or sign of obstruction. Large amount of clot noted in partially distended bladder as anticipated Review of Systems Review of Systems: All systems reviewed & are unremarkable except as noted in HPI & below Physical Exam Physical Exam: A&Ox3 RRR abd soft, obese NO LE edema Results & Data Vital Signs (Past 12 Hours) Vital Signs Temp Pulse Resp BP BP Pulse Ox 08/20/19 07:57 82 20 167/68 H 91 08/20/19 04:00 36.7 C 82 20 150/82 H 92 08/20/19 00:17 36.8 C 71 18 114/52 L 100 PG Care Time/CCT Total # of Minutes Spent Total Time Spent with Patient: Total time spent is greater than 50% in coordination of care (as documented) at patient's floor/unit and/or counseling patient:
--- NOTE | 2019-08-20 16:51 | Hospitalist Progress Note ---
Date of Service August 20, 2019 Assessment & Plan (1) Acute urinary retention: Secondary to gross hematuria clots and dysfunctioning catheter Clots evacuated from urinary cath and now on CBI Retention resolved for now -Continue CBI -Discontinue IV Rocephin as UC grew less than 1000 colonies -Continue pain and nausea control as needed -Continue home tamsulosin (2) Acute kidney injury: Baseline creat 1.12 -> 2.80 on admission secondary to urinary obstruction with clots as above Creatinine trending downward -Continue IVF -Follow BMP -Holding lisinopril and metformin from home (3) Gross hematuria: Had recent laser prostate surgery 3 weeks prior to admission -Starting having urinary retention and clot formation several days prior to admission with Persaud catheter placed in the ER -Went home and had continued hematuria -Now on CBI -Holding Plavix as above - will request vascular/cardiology records to see if patient might be able to dc Plavix altogether -Oxybutynin as needed for bladder spasms (4) Diabetes mellitus, type 2: A1c 6.5 -Continue to hold metformin -Continue pioglitazone -Continue sliding scale insulin -ADA diet (5) BPH (benign prostatic hyperplasia): Had Greenlight vaporization of prostate 07/31/19 as above (6) Hypertension: Blood pressures running a bit high -Continue to hold home lisinopril for acute kidney injury - will add hydralazine prn while lisinopril held (7) Constipation: Add MiraLAX (8) Dyspnea: Chronic, likely undiagnosed COPD Has 2 pack a day smoking history for many years, quit 15 years ago -Needs outpatient PFTs -No home inhalers -Monitor for worsening, currently stable (9) Peripheral vascular disease: With history of some sort of vascular surgery in 2016 to the lower extremity -Holding home Plavix - requesting records as above -Continue home statin (10) DVT prophylaxis: Hold chemical prophylaxis due to gross hematuria SCDs ordered Disposition-remain hospitalized for continued treatment of acute kidney injury and gross hematuria with urinary obstruction Subjective Mr. Rey is feeling well, no abdominal pain. Persaud catheter is draining clear urine with constant bladder irrigation. ROS Constitutional: no chills, aches, sweats or fever Respiratory: no sob,cough, sputum, or wheezing Cardiac: no chest pain, palpitations, edema, orthopnea or lightheadedness GI: no abdominal pain, nausea, vomiting, diarrhea or constipation : no dysuria or hesitancy Extremities: no joint pain or weakness Skin: no rash All other systems reviewed and negative Physical Exam Physical Exam: General: no distress Eyes: normal inspection, PERLL Respiratory: chest non tender, clear to auscultation, normal breath sounds, no respiratory distress, no accessory muscle use Cardiac: regular rate and rhythm, no rub or gallop, no murmur, no edema, no jvd GI/: active bowel sounds, no abd pain or tenderness, soft, non distended Extremities: normal range of motion, normal strength, non tender Neuro/Psych: alert and oriented x 3, normal mood and affect Skin: normal color, dry Results & Data Vital Signs (Past 12 Hours) Vital Signs Temp Pulse Resp BP Pulse Ox 08/20/19 15:32 36.6 C 82 19 185/83 H 94 08/20/19 07:57 82 20 167/68 H 91 PG Care Time/CCT Total # of Minutes Spent Total Time Spent with Patient: Total time spent is greater than 50% in coordination of care (as documented) at patient's floor/unit and/or counseling patient:
[2019-08-20] MEDS ORDERED: HydrALAZINE HCL 20 MG/ML VIAL IV PRN (17:02)
[2019-08-20] MEDS: TAMSULOSIN HCL 0.4 MG CAP PO SCH (21:12)
[2019-08-20] MEDS: SIMVASTATIN 40 MG TAB PO SCH (21:13)
[2019-08-21] MEDS: FAMOTIDINE 20 MG TAB PO SCH (07:54)
[2019-08-21] MEDS: GABAPENTIN 300 MG CAP PO SCH (07:54)
[2019-08-21] MEDS: DOCUSATE SODIUM 100 MG CAP PO SCH (07:54)
[2019-08-21] MEDS: POLYETHYLENE (MIRALAX) 17 GM PACK PO SCH (07:54)
[2019-08-21] MEDS: INSULIN ASPART 100 UNITS/ML 3 ML PEN SC SCH ×2 (08:13→12:19)
[2019-08-21] MEDS: LACTATED RINGER'S 1,000 ML IV SCH (09:27)
[2019-08-21 09:28] LABS: Albumin Level 3.3 gm/dl (3.4-5.0); BUN Creatinine Ratio 15.8 (10-20); Calcium 9.4 mg/dl (8.5-10.1); Est GFR (African American) 28.9; Est GFR (Non-African American) 24.9; Potassium 4.5 mmol/L (3.5-5.1)
[2019-08-21 09:31] LABS: Albumin Globulin Ratio 0.8 (0.9-2); Bilirubin,Total 0.4 mg/dl (0.2-1); Globulin 4.1 gm/dl (2.5-4.0); Total Protein 7.4 gm/dl (6.4-8.2)
[2019-08-21 10:02] LABS: Basophils # (auto) 0.01 K/uL (0-0.2); Basophils % (auto) 0.1 %; Eosinophils # (auto) 0.29 K/uL (0-0.5); Eosinophils % (auto) 4.1 %; Hematocrit (blood only) 32.3 % (42-52); Hemoglobin 10.6 g/dL (14.0-18.0); Immature Granulocytes # (auto) 0.01 K/uL (0.00-0.02); Immature Granulocytes % (auto) 0.1 %; Lymphocytes # (auto) 1.47 K/uL (1.2-3.4); Lymphocytes % (auto) 20.7 %; Mean Corpuscular Hemoglobin 30.5 pg (25-34); Mean Corpuscular Hgb Conc 32.8 g/dL (32-36); Mean Corpuscular Volume 92.8 fL (80-100); Mean Platelet Volume 9.7 fL (7.4-10.4); Monocytes # (auto) 0.61 K/uL (0.11-0.59); Monocytes % (auto) 8.6 %; Neutrophils # (auto) 4.72 K/uL (1.4-6.5); Neutrophils % (auto) 66.4 %; Platelet Count 335 K/uL (130-400); RDW Coefficient of Variation 14.2 % (11.5-14.5); RDW Standard Deviation 47.9 fL (36.4-46.3); Red Blood Count 3.48 M/uL (4.7-6.1); White Blood Count 7.11 K/uL (4.8-10.8)
--- NOTE | 2019-08-21 13:25 | Hospitalist Progress Note ---
Date of Service August 21, 2019 Assessment & Plan (1) Acute urinary retention: Secondary to gross hematuria clots and dysfunctioning catheter Clots evacuated from urinary cath and now on CBI Retention resolved for now -Continue CBI -Discontinue IV Rocephin as UC grew less than 1000 colonies -Continue pain and nausea control as needed -Continue home tamsulosin (2) Acute kidney injury: Baseline creat 1.12 -> 2.80 on admission secondary to urinary obstruction with clots as above Creatinine trending downward -Continue IVF -Follow BMP -Holding lisinopril and metformin from home (3) Gross hematuria: Had recent laser prostate surgery 3 weeks prior to admission -Starting having urinary retention and clot formation several days prior to admission with Persaud catheter placed in the ER -Went home and had continued hematuria -Now on CBI -Holding Plavix as above - patient sees Dr. Quevedo with [facility] in [place] for vascular surgery. I discussed his case with the nurse practitioner that works with Dr. Quevedo. She recommends that Mr. Rey be put on aspirin if possible once he is past this acute issue if possible but that the Plavix can be discontinued. He did not have a stent placed. -Oxybutynin as needed for bladder spasms (4) Diabetes mellitus, type 2: A1c 6.5 -Continue to hold metformin -Continue pioglitazone -Continue sliding scale insulin -ADA diet (5) BPH (benign prostatic hyperplasia): Had Greenlight vaporization of prostate 07/31/19 as above (6) Hypertension: Blood pressures running a bit high -Continue to hold home lisinopril for acute kidney injury - will add hydralazine prn while lisinopril held (7) Constipation: Add MiraLAX (8) Dyspnea: Chronic, likely undiagnosed COPD Has 2 pack a day smoking history for many years, quit 15 years ago -Needs outpatient PFTs -No home inhalers -Monitor for worsening, currently stable (9) Peripheral vascular disease: With history of some sort of vascular surgery in 2016 to the lower extremity -Holding home Plavix - requesting records as above -Continue home statin (10) DVT prophylaxis: Hold chemical prophylaxis due to gross hematuria SCDs ordered Disposition-remain hospitalized for continued treatment of acute kidney injury and gross hematuria with urinary obstruction Results & Data Vital Signs (Past 12 Hours) Vital Signs Temp Pulse Resp BP BP Pulse Ox 08/21/19 11:26 36.4 C L 89 18 160/89 H 95 08/21/19 07:28 36.9 C 88 20 182/78 H 184/89 H 92 PG Care Time/CCT Total # of Minutes Spent Total Time Spent with Patient: Total time spent is greater than 50% in coordination of care (as documented) at patient's floor/unit and/or counseling patient:
[2019-08-21] MEDS ORDERED: AMLODIPINE BESYLATE 5 MG TAB PO ONE (14:10)
--- NOTE | 2019-08-21 15:23 | Discharge Summary ---
Date of Service August 21, 2019 Admission HPI Per Admitting Provider 79 y/o male who presented to the ED with complaints of urinary catheter malfunction that started this morning. The patient states he had a prostate surgery done by Dr. Egan 3 weeks ago, then developed pain 1 week prior and had a catheter placed. He drained his catheter bag this morning and states it was "pure blood". He has had lower abdominal pain. No F/C, cough, SOB, chest pain, N/V/D, or weakness. Principal Diagnosis Acute kidney injury, hematuria Discharge Exam Constitutional WD/WN, vitals as above Respiratory normal respiratory effort, lungs clear to auscultation Cardiovascular Rate/Rhythm: regular rate and regular rhythm Heart Sounds: + murmur (LLSB 3/6) Gastrointestinal (Abdomen) Inspection/Auscultation: abdomen normal to inspection and normal bowel sounds; abdomen not distended Percussion/Palpation: abdomen soft; abdomen nontender Musculoskeletal no cyanosis or clubbing, extremities motor strength 5/5 Skin no rashes, warm and dry Neurologic moves all extremities and awake Psychiatric A+Ox3, euthymic affect Discharge Data Allergies Allergy/AdvReac Type Severity Reaction Status Date / Time Penicillins Allergy Unknown Unknown Verified 08/18/19 18:17 sildenafil [From Viagra] AdvReac Unknown hyperactivi Verified 08/18/19 18:17 ty Consultations 08/18/19 19:35 ED Decision to Admit Stat 08/18/19 21:50 Consult Urology Routine 08/20/19 16:44 Consult Health Information Management Routine Ordered Studies 08/18/19 19:35 CT abd pelvis wo con Stat Hospital Course (1) Acute urinary retention: Secondary to gross hematuria clots and dysfunctioning catheter Clots evacuated from urinary cath, CBI clamped since yesterday Retention resolved -Discontinued IV Rocephin as UC grew less than 1000 colonies -Continue home tamsulosin - Home with catheter until follow up with urology - urology ok with dc today from their point of view (2) Acute kidney injury: Baseline creat 1.12 -> 2.80 on admission secondary to urinary obstruction with clots as above Creatinine trending downward, provided IVF -Holding lisinopril and metformin from home - will have repeat blood work on Tuesday (3) Gross hematuria: Had recent laser prostate surgery 3 weeks prior to admission -Starting having urinary retention and clot formation several days prior to admission with Persaud catheter placed in the ER -Went home and had continued hematuria -Holding Plavix as above - patient sees Dr. Quevedo with [facility] in [place] for vascular surgery. I discussed his case with the nurse practitioner that works with Dr. Quevedo. She recommends that Mr. Rey be put on aspirin if possible once he is past this acute issue and that Plavix can be discontinued. He did not have a stent placed. -Oxybutynin as needed for bladder spasms (4) Diabetes mellitus, type 2: A1c 6.5 -Hold metformin - will give renally dosed sitagliptin instead until kidney function improves -Continue pioglitazone - provided insulin sliding scale inpatient -ADA diet (5) BPH (benign prostatic hyperplasia): Had Greenlight vaporization of prostate 07/31/19 as above (6) Hypertension: Blood pressures running a bit high -Continue to hold home lisinopril for acute kidney injury - will discharge with amlodipine 10 mg po daily while kidney injury is healing (7) Constipation: Add MiraLAX (8) Dyspnea: Chronic, likely undiagnosed COPD Has 2 pack a day smoking history for many years, quit 15 years ago -Needs outpatient PFTs -No home inhalers - has been stable, on RA inpatient (9) Peripheral vascular disease: With history of angioplasty -Holding home Plavix as discussed above -Changed statin from simvastatin to atorvastatin due to interaction with amlodipine (10) DVT prophylaxis: Held chemical prophylaxis due to gross hematuria SCDs Total Time Total Time Spent Total Time Spent (In Minutes): greater than 30 minutes Discharge Plan Discharge Items Patient Disposition: Home - Home Health Services Reason For Visit: ACUTE ON CHRONIC KIDNEY INJURY Discharge Diagnosis: Acute kidney injury Activity: Resume your previous activity Non-emergency contact: Primary Care Provider and Urologist Call non-emergency contact if: you have any medication questions, your symptoms worsen, your pain is not controlled, your pain is worsening and you have a fever Follow-up/Referrals: Bruce Egan MD [Physician] - 08/29/19 2:20 pm (Please, follow up at [facility] Office with Dr. Egan's associate, Mandie TONY, on TuesdayAugust 29 at 2:20 pm. *The office is located at [address] [place] [address] in [place]. If you have any questions, call the office at [phone].) Jose Miguel Back MD [Primary Care Provider] - 08/28/19 1:00 pm (Please, follow up with Dr. Back on TuesdayAugust 28 at 1:00 pm. *If you need to change this appointment, call the office at [phone].) Diet: Carb Consistent or DM2 and Heart Healthy Ambulatory Orders: Basic Metabolic Panel (Routine) Timeframe: 3 Days Location: Determined by Patient Ordered By: Ayah Trent Attending Provider Instructions: You were admitted to the hospital for acute urinary retention and kidney injury due to blood in your urine with clots obstructing urine flow. (1) Acute urinary retention: Secondary to gross hematuria clots and dysfunctioning catheter Clots evacuated from urinary cath and continuous bladder irrigation -Continue home tamsulosin - You will continue to have the urinary catheter until your follow up with urology. (2) Acute kidney injury: Your baseline creatinine which is an indicator of renal function is 1.12. On admission it was 2.80 and has been trending down. This injury was due to obstruction from blood clots. -continue to hold lisinopril and metformin until you are told by your primary care provider that you can resume these medications - in the mean time you will be placed on amlodipine, sitagliptin, and atorvastatin for a regimen that will not affect or be affected as much by your kidney function (3) Gross hematuria: -I discussed your Plavix prescription with a nurse practitioner in Dr. Quevedo's office at [facility] vascular surgery. She recommends that you be put on aspirin if possible once you are past this acute issue but that the Plavix can be discontinued. (4) Diabetes mellitus, type 2: Your A1c was 6.5 which means you are well controlled with your diabetes -Hold metformin as discussed above, will prescribe you sitagliptin instead -Continue pioglitazone - please check your blood sugars twice a day when you wake up in the morning, before meals or before bed and keep a log to take to your next appointment. Please call your doctor if your blood sugar is below 70 or if your sugars are running over 250 (5) Hypertension: -Continue to hold your lisinopril. You will take amlodipine for now while your kidneys are healing - Please check your blood pressure daily after sitting quietly with legs uncrossed for at least five minutes. Keep a log to take with you to your doctor's appointment. Please call your doctor if your blood pressures are consistently over 170 for the top number or 100 for the bottom number. - You should go to the emergency department if you develop chest pain, severe headache, nose bleed, visual changes, heart palpitations, or lightheadedness as these can be symptoms of hypertensive urgency. (6) Constipation: You can continue MiraLAX daily and stool softeners. Please let your doctor know if you have not had a bowel movement within the next couple of days. (7) Shortness of breath: - Please discuss obtaining pulmonary function testing with your provider (8) Peripheral vascular disease: - As discussed above, discontinue your Plavix (clopidogrel). You can discuss starting aspirin at a later date with your provider. You will take atorvastatin for now while on amlodipine Pending Studies at Discharge: No Stand-Alone Forms: My [facility] [employer], Smoking Cessation Medications and DC Order Prescriptions: New atorvastatin 40 mg Tablet 40 mg PO QAM Qty: 14 RF: 1 Januvia 25 mg Tablet 50 mg PO DAILY Qty: 14 RF: 0 amlodipine 10 mg tablet 10 mg PO DAILY Qty: 14 RF: 0 Continued finasteride 5 mg tablet 5 mg PO DAILY Qty: 30 RF: 2 oxybutynin chloride 5 mg tablet 5 mg PO BID PRN (Reason: bladder spasms) Qty: 60 RF: 0 docusate sodium 100 mg capsule 100 mg PO BID RF: 0 gabapentin 300 mg capsule 300 mg PO BID RF: 0 tamsulosin 0.4 mg capsule 0.4 mg PO HS RF: 0 pioglitazone 30 mg tablet 30 mg PO QDD RF: 0 trospium 20 mg tablet 20 mg PO BID RF: 0 phenazopyridine [Pyridium] 200 mg tablet 200 mg PO TID PRN (Reason: bladder spasms) Qty: 20 RF: 0 Discontinued simvastatin 80 mg tablet 40 mg PO HS RF: 0 metformin 1,000 mg tablet 1,000 mg PO BIDM RF: 0 lisinopril 10 mg tablet 10 mg PO QAM RF: 0 clopidogrel 75 mg Tablet 75 mg PO QPM Qty: 0 RF: 0 Discharge Orders: Discharge Order (Routine); Ordered 08/21/19 Ordered By: Ayah White/Other Patient Handouts: Diabetes Type 2 Coping Admission Data Admit Date/Time: 08/18/19 21:06 Attending Provider: Isidro Egan Admit Provider: Niraj Walters Primary Care Provider: Jose Miguel Back Other Providers: Marcos Frank ; Isidro Egan ; [facility]
[2019-08-22] MEDS ORDERED: ATORVASTATIN 40 MG TAB PO SCH (09:00)
[2019-08-22] MEDS ORDERED: SITAGLIPTIN PHOSPHATE 25 MG TAB PO SCH (09:00)
== END 2019-08-21 16:40 | disposition home health service (06) | DRG 699 ==
LOC: ED 17:35 → SUATTDRO 21:06 → 2N 21:06